=== PATIENT | male | born 1995 ===

== ENCOUNTER 2022-05-28 11:00 | Emergency (ER) | payer SELFPAY ==
[2022-05-28 13:54] VITALS: BP 140/80
[2022-05-28] MEDS ORDERED: NEOMY 3.5 MG/BACIT 400 UNITS/POLY B 5000 UNITS/GM OINT PACKET TP ONE (14:00)
[2022-05-28] MEDS ORDERED: TETANUS,DIPH,PERTUSS(ACELL) VACCINE 0.5 ML SYRINGE IM ONE (14:00)
[2022-05-28] MEDS ORDERED: LIDOCAINE (1%) 10 MG/1 ML VIAL 20 ML MDV INFILTRATI ONE (14:00)
[2022-05-28] MEDS ORDERED: SODIUM CHLORIDE 0.9% IRR 500 ML BOTTLE IR ONE (14:00)
--- NOTE | 2022-05-28 14:25 | Emergency Department Report ---
ED Laceration HPI - HPI Chief Complaint: Wound/Laceration Stated Complaint: CUT ON RT HAND Time Seen by Provider: 05/28/22 13:02 Occurred When: Today Location: Upper Extremity (Right hand) Severity: mild Tetanus Status: Unknown Laceration Symptoms: No Foreign Body Sensation, No Numbness, No Weakness, No Pain Other History: 27-year-old male with no significant past medical history reports to the ER with a laceration to his right hand sustained while working on his mother's window. Patient reports a laceration is due to a metal edge. Patient reports no other acute symptoms denies loss of sensation to fingers. Range of motion is intact. ED Review of Systems ROS: Stated complaint: CUT ON RT HAND Other details as noted in HPI Comment: All other systems reviewed and negative Skin: other (Right hand laceration) ED Past Medical Hx - Past Medical History Previous Medical History?: Yes Hx Hypertension: Yes - Surgical History Past Surgical History?: No - Social History Smoking Status: Never Smoker - Medications Home Medications: Home Medications Medication Instructions Recorded Confirmed Last Taken Type cephALEXin [Keflex] 500 mg PO Q12HR 7 Days #14 cap 05/28/22 Unknown Rx Laceration Physical Exam - Exam General: Vital signs noted. No distress. Alert and acting appropriately. Wound Length (cm): 1 Laceration Location: Upper Extremity (Right hand) Laceration Exam: Yes Normal Distal CMS, No Foreign Body, No Exposed Tendon, Vessel, or Nerve, No Tendon Injury ED Course Vital Signs 05/28/22 13:53 Temperature 98.2 F Pulse Rate 48 L Respiratory 18 Rate Blood Pressure 140/80 [Left] O2 Sat by Pulse 98 Oximetry - Laceration /Wound Repair Right Upper Dorsal Hand Wound Location: upper extremity (Right hand) Wound Length (cm): 1 Wound's Depth, Shape: superficial Wound Explored: clean Irrigated w/ Saline (ccs): 100 Betadine Prep?: Yes Anesthesia: 1% Lidocaine Volume Anesthetic (ccs): 2 Wound Repaired With: sutures Suture Size/Type: 4:0, proline Number of Sutures: 1 (Running suture) Sterile Dressing Applied?: Yes Progress: Patient tolerated procedure well. ED Medical Decision Making - Medical Decision Making 27-year-old male sustained a right hand laceration while working on a window frame at his mother's house. Laceration was due to a metal age. On physical exam there is a 1.5 cm to the right hand. Range of motion is intact in hand. No decreased in sensation in fingers. No tendon or nerve damage noted. No foreign body expected or seen. Bleeding is controlled. Lac repair performed with running sutures. Patient tolerated procedure well. Patient informed to report back to the ER or his primary care or urgent care for suture removal. Patient agrees with plan of care and verbalized understanding. Vital Signs (72 hours) 05/28/22 13:53 Temperature 98.2 F Pulse Rate 48 L Respiratory 18 Rate Blood Pressure 140/80 [Left] O2 Sat by Pulse 98 Oximetry Critical care attestation.: If time is entered above; I have spent that time in minutes in the direct care of this critically ill patient, excluding procedure time. ED Disposition Clinical Impression: Laceration of right hand Qualifiers: Encounter type: initial encounter Foreign body presence: without foreign body Qualified Code(s): S61.411A - Laceration without foreign body of right hand, initial encounter Disposition: HOME / SELF CARE / HOMELESS Is pt being admited?: No Condition: Stable Instructions: Laceration Care, Adult, Wound Care, Adult, Sutures, Chris, or Adhesive Wound Closure, [id number] Prescriptions: cephALEXin [Keflex] 500 mg PO Q12HR 7 Days #14 cap Referrals: OMER POLLARD MD [Primary Care Provider] - 3-5 Days Time of Disposition: 14:29
== END 2022-05-28 14:57 | disposition home or self-care (01) ==
LOC: ED 11:00
DX: S61.141A Puncture wound with foreign body of right thumb with damage to nail, initial encounter (principal); I10 Essential (primary) hypertension; W26.8XXA Contact with other sharp object(s), not elsewhere classified, initial encounter; Y93.89 Activity, other specified; Y92.89 Other specified places as the place of occurrence of the external cause; Y99.8 Other external cause status
CPT/HCPCS: 90471; 90715; 99282

== ENCOUNTER 2022-06-07 09:21 | Emergency (ER) | payer SELFPAY ==
[2022-06-07 09:49] VITALS: BP 132/83
--- NOTE | 2022-06-07 09:53 | Emergency Department Report ---
- General Chief Complaint: Laceration/Recheck/Suture Stated Complaint: SUTURE REMOVAL Time Seen by Provider: 06/07/22 09:51 Source: patient Mode of arrival: Ambulatory Limitations: No Limitations - History of Present Illness Initial Comments: 27 yo male presents to ed for suture removal. He had sutures placed here 10 days ago. He denies fever, drainage, erythema, and dehiscence. Extremity Location: Right: Hand - Related Data Previous Rx's Medication Instructions Recorded Last Taken Type cephALEXin [Keflex] 500 mg PO Q12HR 7 Days #14 cap 05/28/22 Unknown Rx Allergies Allergy/AdvReac Type Severity Reaction Status Date / Time No Known Allergies Allergy Unverified 05/28/22 13:27 ED Review of Systems ROS: Stated complaint: SUTURE REMOVAL Other details as noted in HPI Comment: All other systems reviewed and negative Constitutional: denies: fever Respiratory: denies: shortness of breath Cardiovascular: denies: chest pain Gastrointestinal: denies: abdominal pain, nausea, vomiting ED Past Medical Hx - Past Medical History Hx Hypertension: Yes - Social History Smoking Status: Never Smoker - Medications Home Medications: Home Medications Medication Instructions Recorded Confirmed Last Taken Type cephALEXin [Keflex] 500 mg PO Q12HR 7 Days #14 cap 05/28/22 Unknown Rx ED Physical Exam - General Limitations: No Limitations General appearance: alert, in no apparent distress - Head Head exam: Present: atraumatic, normocephalic - Eye Eye exam: Present: normal appearance. Absent: conjunctival injection - Respiratory Respiratory exam: Absent: respiratory distress - Cardiovascular Cardiovascular Exam: Present: regular rate - GI/Abdominal GI/Abdominal exam: Absent: distended - Extremities Exam Extremities exam: Present: normal inspection - Neurological Exam Neurological exam: Present: alert, oriented X3 - Psychiatric Psychiatric exam: Present: normal affect, normal mood - Skin Skin exam: Present: warm, dry, intact, normal color ED Course Vital Signs 06/07/22 09:46 Temperature 98.0 F Blood Pressure 132/83 [Right] O2 Sat by Pulse 99 Oximetry - Procedure Description Procedures done: Suture removal: One running suture removed. Wound well approximated, no erythema, edema or drainge noted. ED Medical Decision Making - Medical Decision Making 27 yo male presents to ed for suture removal. He had sutures placed here 10 days ago. He denies fever, drainage, erythema, and dehiscence. Sutures removed per my procedure noted. Patient advised to follow up with his pcp if any problems and return to ED as needed. He verbalized understanding of and agreement with plan of care. Critical care attestation.: If time is entered above; I have spent that time in minutes in the direct care of this critically ill patient, excluding procedure time. ED Disposition Clinical Impression: Visit for suture removal Disposition: 01 HOME / SELF CARE / HOMELESS Is pt being admited?: No Does the pt Need Aspirin: No Condition: Stable Instructions: Suture Removal, Care After Additional Instructions: Follow-up with primary care provider as needed. Return to emergency department as needed. Referrals: OMER POLLARD MD [Staff Physician] - 3-5 Days Time of Disposition: 09:52
== END 2022-06-07 10:05 | disposition home or self-care (01) ==
LOC: ED 09:21
DX: S61.411D Laceration without foreign body of right hand, subsequent encounter (principal); X58.XXXD Exposure to other specified factors, subsequent encounter; Z48.02 Encounter for removal of sutures